=== PATIENT | female | born 1945 | race Caucasian/White ===

== ENCOUNTER 2016-06-29 09:04 | Day surgery (SDC) | payer OTHER ==
[2016-06-27 13:16] LABS: BASOPHILS 0.4 %; BASOPHILS ABSOLUTE 0.04 10/3/uL (0.0-0.16); EOSINOPHILS ABSOLUTE 0.11 10/3/uL (0.0-0.53); HEMATOCRIT 41.3 % (36.0-48.0); HEMOGLOBIN 14.1 g/dL (12.0-16.0); IMMATURE GRANULOCYTES 0.3 %; IMMATURE GRANULOCYTES ABSOLUTE 0.03 10/3/uL (0.0-0.11); LYMPHOCYTES 18.9 %; LYMPHOCYTES ABSOLUTE 2.03 10/3/uL (0.67-4.30); MEAN CORPUS HGB CONC 34.1 g/dL (32.0-36.0); MEAN CORPUSCULAR HEMOGLOB 30.7 pg (26.0-34.0); MEAN CORPUSCULAR VOLUME 89.8 fL (80-100); MEAN PLATELET VOLUME 9.3 fL (9.2-13.0); MONOCYTES 6.1 %; MONOCYTES ABSOLUTE 0.66 10/3/uL (0.21-1.20); NEUTROPHILS 73.3 %; NEUTROPHILS ABSOLUTE 7.89 10/3/uL (2.02-8.40); RBC DISTRIBUTION WIDTH 13.5 % (12.0-16.0); WHITE BLOOD CELLS 10.8 10/3/uL (4.5-10.5)
[2016-06-27 13:17] LABS: PLATELET COUNT 255 10/3/uL (150-400)
[2016-06-27 13:18] LABS: MANUAL DIFF NO %
[2016-06-27 13:32] LABS: A/G RATIO 1.1 (0.7-1.9); ALBUMIN 3.5 G/DL (3.5-5.0); ALKALINE PHOSPHATASE 81 U/L (45-117); BUN (BLOOD UREA NITROGEN) 25 MG/DL (6-23); CALCIUM, SERUM 9.2 MG/DL (8.5-10.4); CHLORIDE, SERUM 102 MMOL/L (96-112); CO2 (CARBON DIOXIDE) 27 MMOL/L (24-34); CREATININE 1.44 MG/DL (0.55-1.02); GFR AFRICAN AMERICAN 43 ML/MIN (>=60); GFR NON AFRICAN AMERICAN 37 ML/MIN (>=60); GLOBULIN 3.3 G/DL (2.5-4.1); GLUCOSE, SERUM 205 MG/DL (60-99); POTASSIUM, SERUM 4.1 MMOL/L (3.5-5.3); SGOT(AST) 15 U/L (5-40); SGPT(ALT) 25 U/L (5-65); SODIUM, SERUM 141 MMOL/L (135-148); TOTAL BILIRUBIN 0.5 MG/DL (0-1.2); TOTAL PROTEIN 6.8 G/DL (6.0-8.5)
[2016-06-27 14:40] LABS: PFA (COL/EPI) 97 SEC (72-180)
--- NOTE | ~2016-06-29 | OP ---
Record Of Operation [facility] [address] [place]. [address] NAME: NAPOLEON GOSS : 49 STATUS : [facility]#: [id number] AGE: 70 ADM/REG DATE : 06/29/16 MR#: [id number] REPORT SERV DATE: 06/29/16 DICTATED BY: MESSI KITCHEN DATE: 06/29/16 REPORT STATUS : Draft TRANSCRIBED BY: MODTresa DATE: 06/29/16 DATE OF PROCEDURE: 06/29/2016 PREOPERATIVE DIAGNOSES: Left ureteral stones, right renal stones. POSTOPERATIVE DIAGNOSES: Left ureteral stones, right renal stones. PROCEDURE: Cystoscopy, examination under anesthesia, left retrograde pyelogram, left rigid ureteroscopy, laser ablation of stones, basket extraction of fragments, placement of left ureteral stent, right retrograde pyelogram, right ureteropyeloscopy, laser ablation of large right renal stones, placement of right ureteral stent, instillation of bladder medications. ANESTHESIA: General. SPECIMENS: Left ureteral stone fragments for stone composition analysis. DRAINS: 6 x 28 bilateral double-J ureteral stents, Contour variety without strings. COMPLICATIONS: None. DISPOSITION: Extubated to recovery room. HISTORY: This is a 70-year-old woman with the above problems, who presents for the above- stated procedure. Her preoperative urine culture was negative. PROCEDURE IN DETAIL: After consent was obtained, the patient was taken to the operating room and placed on the operative table in a supine position. General anesthetic was induced. The patient was then placed in a dorsal lithotomy position. Her perineum was prepped and draped in the usual sterile fashion. Examination under anesthesia reveals obese labia. We could not visualize the urethral meatus. We scoped our way into the bladder. The bladder was evaluated with a 30 and 70-degree lens. Both ureteral orifices were seen, though efflux was only seen from the right ureteral orifice. There was no evidence of any tumor, stones, or foreign bodies seen in the bladder. [employer] film on the table does show perhaps a darkening overlying the pelvic bones on the left, which could be the ureteral stone seen on CT scan. She has too many bowel contents overlying her right kidney to definitively see her stone burden on the right. A left retrograde pyelogram was performed using an open-ended catheter. This showed a normal caliber ureter up to the midportion, which then showed two filling defects in hydronephrotic ureter consistent with her ureteral stones. She then had hydronephrotic ureter and collecting system above that. A wire was easily passed up into the kidney. Open-ended was passed over the wire into the kidney, and dye was shot into the distended collecting system and hydronephrotic drip was noted. We then passed the Bentson wire back up in through the open-ended into the kidney and the open-ended was removed. The 4 cm 18-Tamazight balloon was then used to dilate the right ureteral orifice. The bladder was drained. Scope and sheath were removed leaving the safety wire in place. Safety wire was clamped to the drapes. Rigid ureteroscopy was performed up to the level of the stones. The 200 fiber was used to fragment both of her large left ureteral stones. Each were anywhere Record Of Operation [place] [id number] [facility] [place]. [address] NAME: NAPOLEON GOSS : 49 STATUS : [facility]#: [id number] AGE: 70 ADM/REG DATE : 06/29/16 MR#: [id number] REPORT SERV DATE: 06/29/16 DICTATED BY: MESSI KITCHEN DATE: 06/29/16 REPORT STATUS : Draft TRANSCRIBED BY: TRELL DATE: 06/29/16 between 7 to 9 mm. Once these were in small enough pieces to remove with the basket, the filiform basket was then passed. All of the sizable stone fragments were removed in six passes. The stone fragments were dropped in the bladder. We then shot a retrograde pyelogram with the rigid ureteroscope. This did show that the collecting system was intact. However, it did appear significantly edematous where the stones had been sitting, so decision was made at that time to leave the stent in without a string to allow the edema to resolve. At that time, the safety wire was left in place, clamped to the drapes, and attention was paid to the right ureter. The cystoscope was replaced. The bladder was drained. Right retrograde pyelogram was performed with the open-ended, this showed a normal caliber ureter and collecting system with filling defect of the upper pole. The wire was easily passed into kidney. Ureteral dilating balloon was used to dilate the ureteral orifice. This was then removed. The bladder was drained. The scope and sheath were removed. Amita catheter was used to pass a second wire into the kidney. A safety wire was clamped to the drapes. A 12/14 x 28 cm access sheath was then passed up to the level of the upper ureter. The inner core was removed. Flexible ureteroscope was passed over the working wire into the kidney. Working wire was removed. Retrograde pyelogram was performed through the flexible ureteroscope. All calices were evaluated in the kidney. She had most of her stone burden in the upper pole, but she also has some stone located in the midpole. She has significant stone burden of approximately 1.5 cm. This was not all one stone she had. Part of her stone was fragmented from lithotripsy. She also had multiple small stones, which were wedged between larger stones. Her lower pole was spared. At that time, 200 laser fiber was used to laser her stones into small pieces of dust. This took approximately 90 minute. We did flush all the small pieces to make sure that they were completely mobile. No significant stone fragments were noted, specifically nothing larger than 1 mm were noted. We then backed the scope long-term down the ureter and shot a retrograde pyelogram. This showed that her collecting system was intact. We then backed all the way down the ureter and shot a retrograde pyelogram. This showed that the collecting system was intact. Her entire ureter appeared normal. We did not see any significant stone fragments or any other abnormalities. The flexible ureteroscope was removed. Safety wire was backed through the cystoscope. A 6 x 28 stent was passed over the wire into the kidney. Good curl was seen in the kidney and in the bladder. It was seen to be draining. The cystoscope was removed. The left safety wire was backed through the cystoscope. The second 6 x 28 stent was passed over that wire into the kidney with good curl seen in the renal pelvis and in the bladder. It was also seen to be draining. The bladder was drained. 20 mL of 1% lidocaine plain were passed in the bladder, and the scope and sheath were removed. She was awakened from anesthetic, extubated, and taken to recovery room in good condition. Plan will be to send her home today and see her back in the office on 07/12/2016 at 9:30 a.m. All of her prescriptions were given to her at her office visit. YOBANI/TRELL Messi Kitchen M.D. / [id number] Record Of Operation [address] [place] [address] NAME: NAPOLEON GOSS : 49 STATUS : [facility] PAT#: [id number] AGE: 70 ADM/REG DATE : 06/29/16 MR#: [id number] REPORT SERV DATE: 06/29/16 DICTATED BY: MESSI KITCHEN DATE: 06/29/16 REPORT STATUS : Draft TRANSCRIBED BY: TRELL DATE: 06/29/16 CC: Oscar Sims M.D.
[~2016-06-29 09:04] MED LIST: AMBIEN CR12.5 MG PO; ASAB PO; AT10 PO; BYETTA10 SC; CYMBALTA60 PO; DIOVAN320 MG PO; DOLOPHINE10 MG PO; DUONEB INH; DURA25 TOP; ENDOCET1 TA3 PO; FEMARA PO; GLUCOPHAGE1000 MG PO; HIPREX1 GM PO; MICRO-K10 MEQ PO; MIRALAX POWDER1 PKT PO; MULTIVIT/MIN PO; PROAIR HFA INH; PROVIGIL2 PO; SYMBICORT 160/41 INH INH; SYNTHROID175 MCG PO; VOLT75 PO; ZANAFLEX 4 MG TA4 MG PO
[2016-07-06 17:58] LABS: STONE COMPOSITION TWO DNR (())
[2016-10-22] MEDS ORDERED: DURA25 TOP (14:30)
[2016-10-22] MEDS ORDERED: VITAMIN D31000 UNIT PO (14:36)
[2016-10-22] MEDS ORDERED: FISH-EPA1000 MG PO (14:36)
[2016-10-22] MEDS ORDERED: CRANBERRY CONC (14:36)
[2016-10-22] MEDS ORDERED: PROBIOTIC (14:37)
[2016-10-22] MEDS ORDERED: VITAMIN B-121000 MC1 SL (14:38)
[2016-10-22] MEDS ORDERED: CALCIUM (14:38)
[2016-10-22] MEDS ORDERED: SUPER B COMP PO (14:38)
[2016-10-22] MEDS ORDERED: [UNRECOGNIZED DRUG - OTHER] (14:39)
[2016-10-22] MEDS ORDERED: ELEMENTAL MAGNESIUM (14:40)
[2016-10-22] MEDS ORDERED: MEDS (15:01)
== END 2016-06-29 18:40 | disposition home or self-care (01) ==
LOC: SDC 09:04
PROVIDERS: Urology
PROC: BT1FYZZ Fluoroscopy of Left Kidney, Ureter and Bladder using Other Contrast (ICD-10-PCS; 2016-06-29)
PROC: 0TF78ZZ Fragmentation in Left Ureter, Via Natural or Artificial Opening Endoscopic (ICD-10-PCS; principal; 2016-06-29 10:15)
PROC: 0T778DZ Dilation of Left Ureter with Intraluminal Device, Via Natural or Artificial Opening Endoscopic (ICD-10-PCS; 2016-06-29 10:15)
DX: N20.2 Calculus of kidney with calculus of ureter (principal); I10 Essential (primary) hypertension; E11.9 Type 2 diabetes mellitus without complications; J45.909 Unspecified asthma, uncomplicated; J44.9 Chronic obstructive pulmonary disease, unspecified; F32.9 Major depressive disorder, single episode, unspecified; Z90.49 Acquired absence of other specified parts of digestive tract; I45.10 Unspecified right bundle-branch block; Z98.51 Tubal ligation status; Z88.1 Allergy status to other antibiotic agents; Z88.8 Allergy status to other drugs, medicaments and biological substances; Z87.891 Personal history of nicotine dependence; Z98.890 Other specified postprocedural states
CPT/HCPCS: 74420; 80053; 82365; 82962; 85025; 85576; 93005; A9270-GY; C1726; C1758; C1892; C1894; C2617; J2250; J2370; J2405; J2710; J3010; Q9967